=== PATIENT | female | born 1970 | race Caucasian/White ===

== ENCOUNTER 2018-06-17 12:48 | Outpatient (REF) | payer OTHER, SELFPAY ==
--- NOTE | 2018-06-17 11:00 | PAPFT_PTH ---
PATIENT: Nancy Epstein LOC: [facility] U#:[id number] AGE/SX: 47/F ROOM: RE06/17/[address]: Laan Matthews : 1970 BED: DIS: 06/17/2018 SPEC #: [id number] RECD: 06/17/18 18:17 STATUS: VIVIANE REQ #: [id number] NICHOLE: 06/17/18 11:[address]: Lana Matthews DEPT: [facility] Cytology RECD BY: Elizabeth Roberts Tissues: 1 - CX/ENDOCX FOR PAP SMEARS Procedures: PAP THIN PREP/UVM Screening HPV DNA PROBE Comments: [id number]
== END 2018-06-17 13:08 ==
LOC: NCHCN 12:48
PROVIDERS: PCP Family Medicine; Visit Provider Family Medicine
DX: Z00.00 Encounter for general adult medical examination without abnormal findings (principal); Z12.4 Encounter for screening for malignant neoplasm of cervix; Z11.51 Encounter for screening for human papillomavirus (HPV)
CPT/HCPCS: 88142; 87624

== ENCOUNTER 2018-07-13 00:44 | Outpatient (CLI) | payer OTHER, SELFPAY ==
--- NOTE | 2018-07-13 13:00 | DI.MAMMO_ITS ---
SYMPTOM/DIAGNOSIS: SCREENING, Z12.31 MAMMOGRAMS: Mammograms were interpreted according to the usual protocol including computer analysis with CAD system, tomosynthesis and C view imaging. Comparison is made with exams from 2009 and 2011. The breasts are composed of heterogeneously dense fibroglandular tissue, breast density, category C. In the lateral right breast, on the CC view, there is a question of a small area of nodularity with architectural distortion. No definite abnormality is seen on the MLO view. Spot compression views and ultrasound are requested for further evaluation. No abnormality or change is seen in the left breast. IMPRESSION: Right breast, category 0. Left breast, category 1, negative. MQSA ASSESSMENT OF FINDINGS: Incomplete: Needs additional imaging evaluation. Category 0. Patient will receive a letter notifying them of these results. Bi-RADS category C. The breasts are heterogeneously dense, which may obscure small masses.
== END 2018-07-13 01:04 ==
PROVIDERS: PCP Family Medicine; Visit Provider Family Medicine
DX: Z12.31 Encounter for screening mammogram for malignant neoplasm of breast (principal); R92.8 Other abnormal and inconclusive findings on diagnostic imaging of breast
CPT/HCPCS: 77063; 77067

== ENCOUNTER 2018-07-21 00:55 | Outpatient (CLI) | payer OTHER, SELFPAY ==
--- NOTE | 2018-07-21 14:00 | DI.MAMMO_ITS ---
SYMPTOMS/DIAGNOSIS: F/U ABNORMAL MAMMO, NODULARITY WITH ARCHITECTURAL DISTORTION MAMMOGRAM: Additional images are interpreted according to the usual protocol including tomosynthesis and 2D imaging. Craniocaudad and mediolateral compression spot films of the right breast were obtained today and reveal rather dense fibronodular tissue in the right breast. There is a small region in the medial breast tissue, which appears to be perhaps spiculated. There is a question again made of a small lesion in this patient. At ultrasound, no cyst or mass is identified. SUMMARY: No definite evidence of malignancy; however, close followup of this patient with repeat mammogram and ultrasound in three to four months is suggested for further review. Category 3, breast density category C. MQSA ASSESSMENT OF FINDINGS: Probably benign. Three to four month follow-up recommended. Category 3. Patient will receive a letter notifying them of these results. Bi-RADS category C. The breasts are heterogeneously dense, which may obscure small masses.
== END 2018-07-21 01:15 ==
PROVIDERS: PCP Family Medicine; Visit Provider Family Medicine
DX: Z12.31 Encounter for screening mammogram for malignant neoplasm of breast (principal); R92.8 Other abnormal and inconclusive findings on diagnostic imaging of breast; N60.81 Other benign mammary dysplasias of right breast
CPT/HCPCS: 76642; 77061; 77065; G0279

== ENCOUNTER 2018-10-26 00:10 | Outpatient (CLI) | payer OTHER, SELFPAY ==
--- NOTE | 2018-10-26 09:51 | DI.MAMMO_ITS ---
SYMPTOMS/DIAGNOSIS: F/U ABNL MAMMO, 3 MO F/U RIGHT MAMMOGRAM: Mammograms were interpreted according to the usual protocol including computer analysis with CAD system, tomosynthesis and C view imaging. Comparison is made with 23Oct and 59Gme12. Spot compression CC and MLO views were performed for questioned area of spiculation on the CC view on the previous exam. The right breast is composed of heterogeneously dense fibroglandular tissue, breast density Category C. No persistent abnormality is identified. The findings are consistent with overlying fibroglandular tissue. IMPRESSION: Category 3, negative mammogram. Bilateral screening should be resumed in June 2019. SA ASSESSMENT OF FINDINGS: Probably benign. Resume annual screening. Category 3. Patient will receive a letter notifying them of these results. Bi-RADS category C. The breasts are heterogeneously dense, which may obscure small masses.
== END 2018-10-26 00:30 ==
PROVIDERS: PCP Family Medicine; Visit Provider Family Medicine
DX: Z12.31 Encounter for screening mammogram for malignant neoplasm of breast (principal); R92.8 Other abnormal and inconclusive findings on diagnostic imaging of breast; N64.59 Other signs and symptoms in breast
CPT/HCPCS: 77061; 77065; G0279

== ENCOUNTER 2020-06-14 12:30 | Outpatient (REF) | payer MEDICAID, SELFPAY ==
[2020-06-14 19:16] LABS: Abs Immature Grans 0.01 10^3/uL (0.0-0.06); Absolute Basophil Count 0.02 10^3/uL (0.0-0.2); Absolute Eosinophil Count 0.07 10^3/uL (0.0-0.7); Absolute Lymphocyte Count 1.41 10^3/uL (1.2-3.4); Absolute Monocyte Count 0.25 10^3/uL (0.1-0.8); Absolute Neutrophil Count 2.97 10^3/uL (1.2-6.7); Basophils % 0.4; Eosinophils % 1.5; HCT 41.9 % (36.0-46.0); HGB 13.8 g/dL (11.2-15.7); Immature Grans % 0.2; Lymphocytes % 29.8; MCH 27.2 pg (27.0-33.0); MCHC 32.9 % (32.0-36.0); MCV 82.5 fL (80-95); MPV 10.9 fL (8.0-11.0); Monocytes % 5.3; Neutrophils % 62.8; Nucleated RBC 0 %; Platelet Count 215 10^3/uL (130-400); RBC 5.08 10^6/uL (3.93-5.22); RDW 12.5 % (11.7-14.6); RDW-SD 37.6 fL; WBC 4.73 10^3/uL (4.4-10.8)
[2020-06-14 19:50] LABS: Hemoglobin A1C 5.9 % (<5.7)
[2020-06-14 20:00] LABS: ESR 13 mm/hr (0-20)
[2020-06-14 20:14] LABS: ALT 31 U/L (14-59); AST 16 U/L (15-37); Albumin 4.4 g/dL (3.4-5.0); Alkaline Phosphatase 71 U/L (46-116); Anion Gap 9.2 mmol/L (3-11); BUN 11 mg/dL (7-18); Bilirubin, Total 0.3 mg/dL (0.2-1.0); CO2 28.8 mmol/L (21.0-32.0); CREATININE 0.66 mg/dL (0.55-1.02); Calcium 9.3 mg/dL (8.5-10.1); Calculated LDL 247 mg/dL (<100); Chloride 102 mmol/L (98-107); Cholesterol 353 mg/dL (<200); Folate 18.3 ng/mL (8.6-20.0); Glucose 94 mg/dL (74-106); HDL Cholesterol 55 mg/dL (40-60); Sodium 140 mmol/L (136-145); TSH (W/Ref FT4) 1.47 uIU/mL (0.36-3.74); Total Protein 7.6 g/dL (6.4-8.2); Triglyceride 255 mg/dL (<150)
[2020-06-18 10:38] LABS: Syphilis Serology (RPR) Negative (Negative)
[2020-06-18 10:59] LABS: Hepatitis C Ab w Rflx HCV PCR Negative (Negative)
[2020-06-18 12:08] LABS: HIV-1/2 Ag & Ab Screen Negative (Negative)
== END 2020-06-14 12:50 ==
LOC: NCHCN 12:30
PROVIDERS: PCP Family Medicine; Visit Provider Nurse Practitioner Family
DX: Z13.29 Encounter for screening for other suspected endocrine disorder (principal); Z11.4 Encounter for screening for human immunodeficiency virus [HIV]; Z13.0 Encounter for screening for diseases of the blood and blood-forming organs and certain disorders involving the immune mechanism; Z13.1 Encounter for screening for diabetes mellitus; Z11.59 Encounter for screening for other viral diseases; Z13.220 Encounter for screening for lipoid disorders
CPT/HCPCS: 80053; 80061; 85652; 86803; 87389; 82746; 83036; 84443; 85025; 86592

== ENCOUNTER 2020-07-09 19:02 | Outpatient (REF) | payer MEDICAID, SELFPAY ==
[2020-07-09 19:37] LABS: Vitamin B12 602 pg/mL (193-986)
[2020-07-11 10:21] LABS: Lyme Ab w Rflx to Lyme Confirm Negative (Negative)
[2020-07-13 03:50] LABS: Anaplasma phagocytophilum Negative (Negative); B. miyamotoi PCR Negative (Negative); Babesia divergens/MO-1 Negative (Negative); Babesia duncani Negative (Negative); Babesia microti Negative (Negative); Ehrlichia chaffeensis Negative (Negative); Ehrlichia ewingii/canis Negative (Negative); Ehrlichia muris eauclairensis Negative (Negative)
== END 2020-07-09 19:22 ==
LOC: NCHCN 19:02
PROVIDERS: PCP Family Medicine; Visit Provider Nurse Practitioner Family
DX: G62.9 Polyneuropathy, unspecified (principal)
CPT/HCPCS: 87798; 82607; 86618

== ENCOUNTER 2020-07-13 15:11 | Outpatient (REF) | payer MEDICAID, SELFPAY ==
[2020-07-16 02:14] LABS: Patient Race White; SARS-CoV-2 RNA Undetected (Undetected); SARS-CoV-2 Specimen Source Nasal
== END 2020-07-13 15:31 ==
LOC: NCHCN 15:11
PROVIDERS: PCP Family Medicine; Visit Provider Nurse Practitioner Family
DX: Z11.59 Encounter for screening for other viral diseases (principal)
CPT/HCPCS: U0003

== ENCOUNTER 2020-08-23 13:07 | Outpatient (REF) | payer MEDICAID, SELFPAY ==
[2020-08-23 18:29] LABS: ALT 39 U/L (14-59); AST 19 U/L (15-37); Albumin 4.2 g/dL (3.4-5.0); Alkaline Phosphatase 88 U/L (46-116); Bilirubin, Total 0.3 mg/dL (0.2-1.0); Calculated LDL 88 mg/dL (<100); Cholesterol 159 mg/dL (<200); HDL Cholesterol 44 mg/dL (40-60); Total Protein 7.2 g/dL (6.4-8.2); Triglyceride 139 mg/dL (<150)
[2020-08-23 18:49] LABS: Bilirubin, Direct 0.08 mg/dL (0.00-0.20)
== END 2020-08-23 13:27 ==
LOC: NCHCN 13:07
PROVIDERS: PCP Family Medicine; Visit Provider Nurse Practitioner Family
DX: E78.5 Hyperlipidemia, unspecified (principal); Z13.818 Encounter for screening for other digestive system disorders
CPT/HCPCS: 80061; 80076

== ENCOUNTER 2020-09-26 03:24 | Outpatient (CLI) | payer MEDICAID, SELFPAY ==
--- NOTE | 2020-09-26 | DI.MAMMO_ITS ---
EXAM: MG MAMMO SCREENING CLINICAL HISTORY: SCREENING,Z12.31. TECHNIQUE: Bilateral full field digital CC and MLO mammographic images were obtained with 3D tomosyn thesis and utilizing computer aided detection (CAD). COMPARISON: Prior mammograms dating back to 2010, the most recent being October 2018. FINDINGS: There are no CAD designations. In the left breast on 3D cc imaging there is a 7 x 7 millimeter slightly lobulated nodular density se en at approximately 6 o'clock position located 6.5 centimetres in from the nipple. Small nodular den sities posteriorly in the right breast are unchanged from prior studies. Asymmetric tissue in the ri ght breast is unchanged from prior study studies. There is no new architectural distortion or new sk in thickening-traction. IMPRESSION: Moderately dense fibroglandular tissue. Left breast nodule 7 x 7 millimeters, best seen on CC 3D david ging. Spot compression views with 3D technique recommended. Also recommend ultrasound. BI-RADS Category 0 - Assessment Incomplete: Need additional imaging evaluation Breast Density - Category C - Heterogeneously dense Breast density Category C or D implies that the patient has dense breast tissue. Dense breast tissue can make it harder to find cancer on a mammogram. Dense breast tissue is also associated with an incr eased risk of breast cancer. This information about the result of the mammogram report was provided to the patient to raise their awareness. Use this report when you speak with the patient about their risks for breast cancer, which includes their family history. At that time, you may recommend additional screening tests (Ultrasoun d or MRI) as these tests may add significant information. A negative radiographic report should not delay biopsy if a dominant or clinically suspicious mass is present. Up to ten percent of cancers are not identified on mammography. A negative report may reinforce clinical impression. Adenosis and dense breasts may obscure an underlying neoplasm. False positive reports average 6 to 10%. Patient will receive a letter notifying them of these results.
== END 2020-09-26 03:44 ==
PROVIDERS: PCP Family Medicine; Visit Provider Nurse Practitioner Family
DX: Z12.31 Encounter for screening mammogram for malignant neoplasm of breast (principal); N63.25 Unspecified lump in the left breast, overlapping quadrants
CPT/HCPCS: 77063; 77067

== ENCOUNTER 2020-10-03 03:08 | Outpatient (CLI) | payer MEDICAID, SELFPAY ==
--- NOTE | 2020-10-03 | DI.US_ITS ---
EXAM: US BREAST LT COMPLETE CLINICAL HISTORY: F/U MAMMO, LT BREAST NODULE. TECHNIQUE: Limited ultrasound of the right breast was performed. COMPARISON: Prior mammograms were reviewed. Today's spot compression mammographic view was also revi ewed. FINDINGS: Complete left breast ultrasound was performed including all 4 quadrants as well as the retroareolar r egion and left axilla. Patient was scanned both by the technologist and thereafter by myself. There is no evidence of solid or significant cystic lesions in all 4 quadrants nor within the retroar eolar regions. There are no focal ultrasound findings to correspond to the nodule described on the m ammogram. Therefore this probably represents a benign intramammary lymph node. There is no significant adenopathy in the ipsilateral-left axilla. IMPRESSION: Negative left breast ultrasound. This implies that the nodular density seen on the mammogram is most probably benign tissue or benign intramammary lymph node. Appropriate follow-up is repeat left breast 3D mammogram in 6 months, with earlier imaging if a self detected breast changes noted. Findings and recommendations were discussed by myself with the patient today. BI-RADS Category 3 - 6 month - Probably Benign Finding: Recommend follow-up mammography in 6 months Breast Density - Category C - Heterogeneously dense Breast density Category C or D implies that the patient has dense breast tissue. Dense breast tissue can make it harder to find cancer on a mammogram. Dense breast tissue is also associated with an incr eased risk of breast cancer. This information about the result of the mammogram report was provided to the patient to raise their awareness. Use this report when you speak with the patient about their risks for breast cancer, which includes their family history. At that time, you may recommend additional screening tests (Ultrasoun d or MRI) as these tests may add significant information. A negative radiographic report should not delay biopsy if a dominant or clinically suspicious mass is present. Up to ten percent of cancers are not identified on mammography. A negative report may reinforce clinical impression. Adenosis and dense breasts may obscure an underlying neoplasm. False positive reports average 6 to 10%. Patient will receive a letter notifying them of these results.
--- NOTE | 2020-10-03 | DI.MAMMO_ITS ---
EXAM: MG MAMMO SCREEN CALL BACK UNI CLINICAL HISTORY: F/U MAMMO, LT BREAST NODULE. TECHNIQUE: Bilateral full field digital CC and MLO mammographic images were obtained with 3D tomosyn thesis and utilizing computer aided detection (CAD). COMPARISON: Prior mammograms dating back to 2010, the most recent being recent screening mammogram o f September 26, 2020. Left breast ultrasound was also performed today following his distal mammographic images. FINDINGS: The nodular density persists on 3D spot compression mammographic views. We then proceeded to perform complete ultrasound of the left breast. This did not reveal solid or significant cystic lesions in all 4 quadrants. This implies that the no dular density is either an asymmetric lobular density or benign intramammary lymph node. IMPRESSION: Benign-appearing nodule in the central left breast. No ultrasound findings to correspond to this. P imani see separate breast ultrasound report dictated today. Appropriate follow-up, as discussed by myself with the patient today, is repeat left breast mammogram in 6 months time, with earlier imaging if a self detected breast changes noted. BI-RADS Category 3 - 6 month - Probably Benign Finding: Recommend follow-up mammography in 6 months Breast Density - Category C - Heterogeneously dense Breast density Category C or D implies that the patient has dense breast tissue. Dense breast tissue can make it harder to find cancer on a mammogram. Dense breast tissue is also associated with an incr eased risk of breast cancer. This information about the result of the mammogram report was provided to the patient to raise their awareness. Use this report when you speak with the patient about their risks for breast cancer, which includes their family history. At that time, you may recommend additional screening tests (Ultrasoun d or MRI) as these tests may add significant information. A negative radiographic report should not delay biopsy if a dominant or clinically suspicious mass is present. Up to ten percent of cancers are not identified on mammography. A negative report may reinforce clinical impression. Adenosis and dense breasts may obscure an underlying neoplasm. False positive reports average 6 to 10%. Patient will receive a letter notifying them of these results.
== END 2020-10-03 03:28 ==
PROVIDERS: PCP Family Medicine; Visit Provider Nurse Practitioner Family
DX: Z12.31 Encounter for screening mammogram for malignant neoplasm of breast (principal); R92.8 Other abnormal and inconclusive findings on diagnostic imaging of breast; N60.82 Other benign mammary dysplasias of left breast
CPT/HCPCS: 76642; 77063; 77067

== ENCOUNTER 2021-04-18 03:40 | Outpatient (CLI) | payer MEDICAID, SELFPAY ==
--- NOTE | 2021-04-18 10:53 | DI.MAMMO_ITS ---
Exam(s) MG MAMMO DIAGNOSTIC UNI EXAM: MAMMO DIAGNOSTIC UNI-LEFT CLINICAL HISTORY: 6 MONTH F/U, F/U ABNL MAMMO, R92.8. TECHNIQUE: Unilateral spot mammographic images were obtained with 3D Tomosynthesistechnique and util izing computer aided detection (CAD). COMPARISON: Prior mammograms dating back to 2017, the most recent being 09/26/2020. Ultrasound perf ormed 10/03/2020 was also reviewed FINDINGS: The previously described noncalcified nodule located 6.5 cm in from the nipple is unchanged from 2020. No additional new nodules evident. No malignant-appearing microcalcification groups. No new architectural distortion or skin thickening-traction IMPRESSION: Stable appearance of the 7 x 7 millimeter slightly lobulated benign-appearing nodule in the left cherelle st, unchanged from September 2020 (and not evident on ultrasound examination of September 2020..... Ther efore probably benign lymph node) Appropriate follow-up, as discussed by myself with the patient today, is to keep this patient yearly mammogram schedule, this implying the next bilateral mammogram would be in September 2021, with earlier imaging if a self detected breast change is noted.. The patient was informed of the findings and follow-up recommendations prior to [facility]. BI-RADS Category 2 - Benign Findings Breast Density - Category C - Heterogeneously dense Breast density Category C or D implies that the patient has dense breast tissue. Dense breast tissue can make it harder to find cancer on a mammogram. Dense breast tissue is also associated with an incr eased risk of breast cancer. This information about the result of the mammogram report was provided to the patient to raise their awareness. Use this report when you speak with the patient about their risks for breast cancer, which includes their family history. At that time, you may recommend additional screening tests (Ultrasoun d or MRI) as these tests may add significant information. A negative radiographic report should not delay biopsy if a dominant or clinically suspicious mass is present. Up to ten percent of cancers are not identified on mammography. A negative report may reinforce clinical impression. Adenosis and dense breasts may obscure an underlying neoplasm. False positive reports average 6 to 10%. Patient will receive a letter notifying them of these results.
== END 2021-04-18 04:00 ==
PROVIDERS: PCP Family Medicine; Visit Provider Nurse Practitioner Family
DX: R92.8 Other abnormal and inconclusive findings on diagnostic imaging of breast (principal); N63.20 Unspecified lump in the left breast, unspecified quadrant
CPT/HCPCS: 77061; 77065; G0279

== ENCOUNTER 2021-08-23 14:38 | Outpatient (REF) | payer MEDICAID, SELFPAY ==
--- NOTE | 2021-08-23 13:45 | PAPFT_PTH ---
PATIENT: Nancy Epstein LOC: [facility]#:[id number] AGE/SX: 51/F ROOM: RE08/23/[address]: Lana Matthews : 1970 BED: DIS: 08/23/2021 SPEC #: [id number] RECD: 08/24/21 11:50 STATUS: VIVIANE REMalgorzata #: [id number] NICHOLE: 08/23/21 13:[address]: Lana Matthews DEPT: [facility] Cytology RECD BY: Lu Pennington Tissues: 1 - CX/ENDOCX FOR PAP SMEARS Procedures: PAP THIN PREP/UVM Screening HPV DNA PROBE Comments: [id number]
[2021-08-23 19:02] LABS: ALT 41 U/L (14-59); Calculated LDL 105 mg/dL (<100); Cholesterol 184 mg/dL (<200); HDL Cholesterol 55 mg/dL (40-60); Triglyceride 123 mg/dL (<150)
== END 2021-08-23 14:39 | disposition home or self-care (01) ==
LOC: NCHCN 14:38
PROVIDERS: PCP Family Medicine; Visit Provider Family Medicine
DX: E78.5 Hyperlipidemia, unspecified (principal); R73.03 Prediabetes; Z12.4 Encounter for screening for malignant neoplasm of cervix; Z11.51 Encounter for screening for human papillomavirus (HPV); R87.610 Atypical squamous cells of undetermined significance on cytologic smear of cervix (ASC-US)
CPT/HCPCS: 80061; 88142; 83036; 84460; 87624

== ENCOUNTER → 2022-01-03 00:31 | Outpatient (CLI) | payer MEDICAID, SELFPAY | PROVIDERS: PCP Family Medicine; Visit Provider Family Medicine ==

== ENCOUNTER → 2022-07-21 02:12 | Outpatient (CLI) | payer MEDICAID, SELFPAY ==
--- NOTE | 2022-07-21 11:45 | DI.MAMMO_ITS ---
Exam(s) MAMMO SCREENING EXAM: MAMMO SCREENING CLINICAL HISTORY: SCREENING, Z12.31 TECHNIQUE: Mammograms were interpreted according to the usual protocol including computer analysis w [employer] CAD system, tomosynthesis and C-view imaging. COMPARISON: 2017 through 2020 FINDINGS: The breasts are composed of heterogeneously dense fibroglandular densities, Breast Density category C . No suspicious masses or suspicious microcalcifications are seen. No skin thickening or abnormal axillary lymph nodes are seen. There has been no significant change from prior exams. Stable circumscribed nodule left breast. IMPRESSION: BI-RADS Cat 2 - Benign Findings Yearly screening mammography is recommended. Breast Density Category C, heterogeneously Dense. The mammogram demonstrates the patient's breast tissue is dense. Dense breast tissue is very common a nd is not abnormal but dense breast tissue can make it harder to find cancer on a mammogram. Also, de nse breast tissue may increase breast cancer risk. This information about the result of the mammogram report was provided to the patient to raise their awareness. Use this report when you speak with the patient about their risks for breast cancer, which includes their family history. At that time, you may recommend additional screening tests (Ultrasound or MRI) as they might be useful based on their r isk. A negative radiographic report should not delay biopsy if a dominant or clinically suspicious mass is present. Up to ten percent of cancers are not identified on mammography. A negative report may reinforce clinical impression. Adenosis and dense breasts may obscure an underlying neoplasm. False positive reports average 6 to 10%.
== END ==
PROVIDERS: PCP Family Medicine; Visit Provider Family Medicine
DX: Z12.31 Encounter for screening mammogram for malignant neoplasm of breast (principal)
CPT/HCPCS: 77063; 77067

== ENCOUNTER 2023-06-17 16:16 | Outpatient (REF) | payer BC, SELFPAY ==
[2023-06-17 20:36] LABS: Calculated LDL 225 mg/dL (<100); Cholesterol 320 mg/dL (<200); HDL Cholesterol 79 mg/dL (40-60); Triglyceride 83 mg/dL (<150)
== END 2023-06-17 16:17 | disposition home or self-care (01) ==
LOC: NCHCN 16:16
PROVIDERS: PCP Family Medicine; Visit Provider Family Medicine
DX: E78.5 Hyperlipidemia, unspecified (principal)
CPT/HCPCS: 80061

== ENCOUNTER → 2023-07-22 03:42 | Outpatient (CLI) | payer BC, SELFPAY ==
--- NOTE | 2023-07-22 09:06 | DI.MAMMO_ITS ---
Exam(s) MAMMO SCREENING EXAM: MAMMO SCREENING CLINICAL HISTORY: SCREENING, Z12.31 TECHNIQUE: Mammograms were interpreted according to the usual protocol including computer analysis w [employer] CAD system, tomosynthesis and C-view imaging. COMPARISON: 2017 through 2021 FINDINGS: The breasts are composed of heterogeneously dense fibroglandular densities, Breast Density category C . No suspicious masses or suspicious microcalcifications are seen. No skin thickening or abnormal axillary lymph nodes are seen. There has been no significant change from prior exams. IMPRESSION: BI-RADS Category 1, Negative mammogram. Yearly screening mammography is recommended. Breast Density Category C, heterogeneously Dense. The mammogram demonstrates the patient's breast tissue is dense. Dense breast tissue is very common a nd is not abnormal but dense breast tissue can make it harder to find cancer on a mammogram. Also, de nse breast tissue may increase breast cancer risk. This information about the result of the mammogram report was provided to the patient to raise their awareness. Use this report when you speak with the patient about their risks for breast cancer, which includes their family history. At that time, you may recommend additional screening tests (Ultrasound or MRI) as they might be useful based on their r isk. A negative radiographic report should not delay biopsy if a dominant or clinically suspicious mass is present. Up to ten percent of cancers are not identified on mammography. A negative report may reinforce clinical impression. Adenosis and dense breasts may obscure an underlying neoplasm. False positive reports average 6 to 10%.
== END ==
PROVIDERS: PCP Family Medicine; Visit Provider Family Medicine
DX: Z12.31 Encounter for screening mammogram for malignant neoplasm of breast (principal); R92.333 Mammographic heterogeneous density, bilateral breasts
CPT/HCPCS: 77063; 77067

== ENCOUNTER 2024-06-16 15:52 | Outpatient (REF) | payer BC, SELFPAY ==
[2024-06-16 15:50] LABS: Abs Immature Grans 0.01 10^3/uL (0.0-0.06); Absolute Basophil Count 0.02 10^3/uL (0.0-0.2); Absolute Eosinophil Count 0.04 10^3/uL (0.0-0.7); Absolute Lymphocyte Count 1.18 10^3/uL (1.2-3.4); Absolute Monocyte Count 0.27 10^3/uL (0.1-0.8); Absolute Neutrophil Count 3.85 10^3/uL (1.2-6.7); Basophils % 0.4 %; Eosinophils % 0.7 %; HCT 43.2 % (36.0-46.0); HGB 13.9 g/dL (11.2-15.7); Immature Grans % 0.2 %; MCH 27.7 pg (27.0-33.0); MCHC 32.2 % (32.0-36.0); MCV 86 fL (80-95); MPV 9.9 fL (8.0-11.0); Neutrophils % 71.7 %; Platelet Count 238 10^3/uL (130-400); RBC 5.01 10^6/uL (3.93-5.22); RDW 12.3 % (11.7-14.6); WBC 5.37 10^3/uL (4.4-10.8)
[2024-06-16 15:53] LABS: ESR 20 mm/hr (0-30)
[2024-06-16 16:07] LABS: ALT 21 U/L (14-59); AST 14 U/L (15-37); Albumin 3.8 g/dL (3.4-5.0); Alkaline Phosphatase 72 U/L (46-116); Anion Gap 5.8 mmol/L (3-11); BUN 12 mg/dL (7-18); Bilirubin, Total 0.45 mg/dL (0.2-1.0); C-Reactive Protein 1.58 mg/dL (<or=0.5); CO2 30.2 mmol/L (21.0-32.0); CREATININE 0.6 mg/dL (0.55-1.02); Calcium 9.6 mg/dL (8.5-10.1); Chloride 100 mmol/L (98-107); Glucose 99 mg/dL (74-106); Potassium 4.2 mmol/L (3.5-5.1); Sodium 136 mmol/L (136-145); Total Protein 7.3 g/dL (6.4-8.2)
== END 2024-06-16 15:53 | disposition home or self-care (01) ==
LOC: NCHCN 15:52
PROVIDERS: PCP Family Medicine; Visit Provider Student in an Organized Health Care Education/Training Program
DX: M54.6 Pain in thoracic spine (principal)
CPT/HCPCS: 80053; 85652; 85025; 86140

== ENCOUNTER 2024-08-17 16:16 | Outpatient (REF) | payer BC, SELFPAY ==
--- NOTE | 2024-08-17 14:30 | PAPFT_PTH ---
PATIENT: Nancy Epstein LOC: [facility] #:[id number] AGE/SX: 54/F ROOM: RE08/17/[address]: Lana Matthews : 1970 BED: DIS: 08/17/2024 SPEC #: [id number] RECD: 08/19/24 11:30 STATUS: VIVIANE REQ #: [id number] NICHOLE: 08/17/24 14:[address]: Lana Matthews DEPT: [facility] Cytology RECD BY: Elizabeth Roberts Tissues: 1 - CX/ENDOCX FOR PAP SMEARS Procedures: PAP THIN PREP/UVM Screening HPV DNA PROBE Comments: [id number] (HPV 16 & 18/45)
--- OUTSIDE RECORDS SUMMARY | 2024-08-17 16:18 | XMS_ITS | Encounter Summary ---
Author Organization [facility] Address [address] [place] [address] Care Team Providers Care Floorworker Name Role Phone Unknown, Provider Primary Care Provider Unava ilable Encounter Details Date Type Department Care Team (Latest Contact Info) Description 06/28/2018 10:59 EDT - 06/28/2018 23:59 EDT Hospital Encounter [address] [address] Unknown, ProviderMD Discharge Disposition: Auto Discharge Social History Tobacco Use Types Packs/Day Years Used Date Smoking Tobacco: Never Assessed Comments Unknown Sex and Gender Information Value Date Recorded Sex Assigned at Not on file Legal Sex Female 18:31 EST Gender Identity Not on file Sexual Orientation Not on file documented as of this encounter Discharge Disposition Disposition Code Departure Means Destination Auto Discharge Home documented in this encounter Plan of Treatment Not on file documented as of this encounter Visit Diagnoses Not on filedocumented in this encounter Care Teams Floorworker Relationship Specialty Start Date End Date Unknown, ProviderMD PCP - General 08/14/15 06/29/18 documented as of this encounter
--- OUTSIDE RECORDS SUMMARY | 2024-08-17 16:18 | XMS_ITS | Encounter Summary ---
Author Organization [facility] Address [address] [place] [address] Care Team Providers Care Assistant Commissioner Name Role Phone Unknown, Provider Primary Care Provider Unava ilable Encounter Details Date Type Department Care Team (Late st Contact Info) Description 06/17/2018 Results Only [facility] [phone] Lana Hoffman MD [address] [phone] Social History Tobacco Use Types Packs/Day Years Used Date Smoking Tobacco: Never Assessed Comments Unknown Sex and Gender Information Value Date Recorded Sex Assigned at Not on file Legal Sex Female 18:31 EST Gender Identity Not on file Sexual Orientation Not on file documented as of this encounter Plan of Treatment Not on file documented as of this encounter Procedures Procedure Name Priority Date/Time Associated Diagnosis Comments PAP TEST- RESULT ONLY Routine 06/17/2018 0:00 EDT documented in this encounter Results * PAP TEST- RESULT ONLY (06/17/2018 0:00 EDT) Pathology Report: CYTOPATHOLOGY REPORT Reports generated via electronic interface contain original data; however they are lacking the format of the original report. Caution should be taken when reading/interpret ing unformatted reports. Name: ? OSMIN GALLEGOS ? Accession #: ? [id number] ? : ? 1970 (Age: 47) ??F ?Collect Date: ? 06/17/2018 ? Location: ? [facility] ? Receive Date: ? 06/18/2018 ? Provider: LANA HOFFMAN MD Copy to: ? Final Report SPECIMEN ADEQUACY ? Satisfactory for Evaluation - transformation zone component present GENERAL CATEGORIZATION ? Epithelial Cell Abnormality INTERPRETATION ? Squamous Cell Abnormality - Atypical squamous cells, undetermined significance (ASC-US). EDUCATIONAL NOTES/RECOMMENDAT IONS ? [facility] recommends following ASCCP's 2012 Updated Consensus Guidelines for the Management of Abnormal Cervical Cancer Screening Tests and Cancer Precursors (JLGTD, 2013; 17(5):S1-S27). ??Consensus guidelines are available online at www.asccp.org. Last Menstrual Period: 2018 Other: Additional clinical information: Z00.00 Z12.4 Z11.51 Specimen/Source: ??Pap Test, Cervix, ThinPrep Imaging System with manual evaluation Document reviewed and electronically signed by: ? ALMA JOHNSON MD ? Report ??Date: 06/28/2018 11:17 HPV with Pap Test ? Date Ordered: ? 06/28/2018 ? Status: ?? Signed Out ?Date Complete: ? 06/29/2018 ? By: ??System Interface ? Date Reported: ? 06/29/2018 ? Interpretation RESULT: Negative for HPV. No E6 or E7 mRNA is detected from HPV types 16,18,31,33,35, 39,45,51,52,56,58 ,59,66, and 68 by grounds manager mediated amplification. Comments Document reviewed and electronically signed by: ? System Interface ? Report date: 06/29/2018 By the signature above, the attending physician certifies that he/she has personally conducted a gross and/or microscopic examination of the described specimens and rendered or confirmed the above diagnosis. End of Report [facility] 06/17/2018 06/18/2018 us Lana Hoffman MD PATHOLOGY ORDERABLES Final Resul t Performing Organization Address City/State/[facility] Co de Phone Number [facility] [address] [place] [address] documented in this encounter Visit Diagnoses Not on filedocumented in this encounter Care Teams Assistant Commissioner Relationship Specialty Start Date End Date Unknown, Provider, PCP - General 08/14/15 06/29/18 documented as of this encounter
--- OUTSIDE RECORDS SUMMARY | 2024-08-17 16:18 | XMS_ITS | Encounter Summary ---
Author Organization [facility] [place] [address] Care Team Providers Care Beaming Inspector Name Role Phone Mirian Solis MD Primary Care Provider [phone] Encounter Details Date Type Department Care Team (Late st Contact Info) Description 11/03/[address] [place] [phone] Manisha Zepeda Social History Tobacco Use Types Packs/Day Years Used Date Smoking Tobacco: Never Assessed Sex and Gender Information Value Date Recorded Sex Assigned at Not on file Gender Identity Not on file Sexual Orientation Not on file documented as of this encounter Plan of Treatment Not on file documented as of this encounter Visit Diagnoses Not on filedocumented in this encounter Care Teams Beaming Inspector Relationship Specialty Start Date End Date Mirian Solis MD [address] [place], [place] [id number] PCP - General 08/13/10 documented as of this encounter
--- OUTSIDE RECORDS SUMMARY | 2024-08-17 16:18 | XMS_ITS | Encounter Summary ---
Author Organization [facility] Address [address] [place] [address] Care Team Providers Care Rat Breeder Name Role Phone Unavailable Primary Care Provider Unavailabl e Encounter Details Date Type Department Care Team (Late st Contact Info) Description 05/07/2006 Results Only [facility] - Maple conversion [address] [place] [address] sAhok Bowens MD [address] [place] [address] [address] [place] [address] Social History Tobacco Use Types Packs/Day Years [...] Procedure Name Priority Date/Time Associated Diagnosis Comments CYTOPATHOLOGY Routine 05/07/2006 0:00 EDT documented in this encounter Results * CYTOPATHOLOGY (05/07/2006 0:00 EDT) Pathology Report: CYTOPATHOLOGY REPORT Reports generated via electronic interface contain original data; however they are lacking the format of the original report. Caution should be taken when reading/interpreti ng unformatted reports. Name: ? OSMIN GALLEGOS ? Accession #: ? [id number] : ? 1970 (Age: 35) ??F ?Collect Date: ? 05/07/2006 Location: ? [facility] ? Receive Date: ? 05/11/2006 Provider: ?ASHOK BOWENS MD Copy to: ? Specimen/Source: ?ThinPrep Pap Test, Cervix/Endocervix, processed on [employer] ThinPrep Imaging System, with manual evaluation Last Menstrual Period: ? 05/26/05 Menstrual/Pregnanc y Status: ? Post Other: ? HPVA - HPV testing requested if ASC-US on the current ThinPrep Pap test. Additional clinical information: Previous pap WNL ? SPECIMEN ADEQUACY ? Satisfactory for Evaluation - transformation zone component present GENERAL CATEGORIZATION ? Negative for Intraepithelial Lesion or Malignancy ? Document reviewed and electronically signed by: ? KIM Bhandari(ASCP) ? Report Date: ??05/14/2006 11:10 End of Report KATELYNN SONG 05/07/2006 05/11/2006 us Ashok Bowens MD PATHOLOGY ORDERABLES Final Resul t Performing Organization Address City/State/[facility] Co de Phone Number KATELYNN SONG [address] [place] [address] documented in this encounter Visit Diagnoses Not on filedocumented in this encounter
--- OUTSIDE RECORDS SUMMARY | 2024-08-17 16:18 | XMS_ITS | Encounter Summary ---
Author Organization [facility] Address [address] [place] [address] Care Team Providers Care Field Account Manager Name Role Phone Unavailable Primary Care Provider Unavailabl e Encounter Details Date Type Department Care Team (Late st Contact Info) Description 08/08/2005 Results Only [facility] - Maple conversion [address] [place] [address] Ruben Tobin [address] [place] [address] Social History Tobacco Use Types Packs/Day Years [...] Priority Date/Time Associated Diagnosis Comments CYTOPATHOLOGY Routine 08/08/2005 0:00 EST documented in this encounter Results * CYTOPATHOLOGY (08/08/2005 0:00 EST) Pathology Report: CYTOPATHOLOGY REPORT Reports generated via electronic interface contain original data; however they are lacking the format of the original report. Caution should be taken when reading/interpreti ng unformatted reports. Name: ? OSMIN GALLEGOS ? Accession #: ? [id number] : ? 1970 (Age: 35) ??F ?Collect Date: ? 08/08/2005 Location: ? [facility] ? Receive Date: ? 08/11/2005 Provider: ?RUBEN LUKEM Copy to: ? Specimen/Source: ?ThinPrep Pap Test, Cervix/Endocervix, processed on [employer] ThinPrep Imaging System, with manual evaluation Last Menstrual Period: ? 05/26/05 Menstrual/Pregnanc y Status: ? Other: ? HPVA - HPV testing requested if ASC-US on the current ThinPrep Pap test. ? SPECIMEN ADEQUACY ? Satisfactory for Evaluation - transformation zone component present GENERAL CATEGORIZATION ? Negative for Intraepithelial Lesion or Malignancy ? Document reviewed and electronically signed by: ? JESUS Peck(ASCP) ? Report Date: ??08/13/2005 14:23 End of Report KATELYNN SONG 08/08/2005 08/11/2005 us Ruben Tobin CNJaqui PATHOLOGY ORDERABLES Final Resul t KATELYNN SONG [address] [place] [address] documented in this encounter Visit Diagnoses Not on filedocumented in this encounter
--- OUTSIDE RECORDS SUMMARY | 2024-08-17 16:18 | XMS_ITS | Encounter Summary ---
Author Organization [facility] Address [address] [place] [address] Care Team Providers Care Beef Grinder Name Role Phone Lana Matthews MD Primary Care Provider [phone] Encounter Details Date Type Department Care Team (Late st Contact Info) Description 06/14/2020 Lab Requisition [facility] Pathology & Laboratory Medicine - [address] [address] Outr Resulting Lab, Provider Social History Tobacco Use Types Packs/Day Years Used Date Smoking Tobacco: Never Assessed Interpersonal Safety Answer Date Record ed Physically Hurt Never 04/22/2020 Verbally Threaten Not on file 04/22/2020 Comments Unknown Sex and Gender Information Value Date Recorded Sex Assigned at Not on file Legal Sex Female 18:31 EST Gender Identity Not on file Sexual Orientation Not on file documented as of this encounter Plan of Treatment Not on file documented as of this encounter Procedures Procedure Name Priority Date/Time Associated Diagnosis Comments SYPHILIS SEROLOGY Routine 06/14/2020 12: 20 EDT documented in this encounter Results * SYPHILIS SEROLOGY (06/14/2020 12:20 EDT) Syphilis Serology Negative Negative 06/18/2020 10:35 EDT [facility] Blood VENOUS BLOOD / Unknown 06/14/2020 12:20 EDT 06/15/2020 16:29 EDT us Provider Outr Resulting Lab IMMUNOLOGY AND SEROL OGY ORDERABLES Final Result [facility] [address] [place] [address] documented in this encounter Visit Diagnoses Not on filedocumented in this encounter Care Teams Beef Grinder Relationship Specialty Start Date End Date Lana Matthews MD [address] [place] [phone] PCP - General 06/30/18 documented as of this encounter
--- OUTSIDE RECORDS SUMMARY | 2024-08-17 16:18 | XMS_ITS | Referral Summary ---
Author Organization [facility] Address [address] [place] [address] Care Team Providers Care Telephone Sterilizer Name Role Phone Lana Matthews MD Primary Care Provider [phone] Social History Tobacco Use Types Packs/Day Years Used Date Smoking Tobacco: Never Assessed Interpersonal Safety Answer Date Record ed Physically Hurt Never 04/22/2020 Verbally Threaten Not on file 04/22/2020 Comments Unknown Sex and Gender Information Value Date Recorded Sex Assigned at Not on file Legal Sex Female 18:31 EST Gender Identity Not on file Sexual Orientation Not on file Plan of Treatment Not on file Procedures Procedure Name Priority Date/Time Associated Diagnosis Comments HEPATITIS C AB W REFLEX TO HCV RNA BY PCR Routine 06/14/2020 12:20 EDT from Last 3 Months or Most Recently Relevant to Health Maintenance Results * HEPATITIS C AB W REFLEX TO HCV RNA BY PCR (06/14/2020 12:20 EDT) Hep C Antibody Negative Negative 06/18/2020 10:53 EDT [facility] Blood VENOUS BLOOD / Unknown 06/14/2020 12:20 EDT 06/15/2020 16:32 EDT us Provider Outr Resulting Lab CHEMISTRY & BLOOD GA S ORDERABLES Final Result [facility] [address] [place] [address] from Last 3 Months or Most Recently Relevant to Health Maintenance Insurance MEDICAID [place] Care Teams Telephone Sterilizer Relationship Specialty Start Date End Date Lana Matthews MD [address] [place] [phone] PCP - General 06/30/18
--- OUTSIDE RECORDS SUMMARY | 2024-08-17 16:18 | XMS_ITS | Encounter Summary ---
Author Organization [facility] Address [address] [place] [address] Care Team Providers Care Die Holder Name Role Phone Lana Matthews MD Primary Care Provider [phone] Encounter Details Date Type Department Care Team (Late st Contact Info) Description 06/14/2020 Lab Requisition [facility] Pathology & Laboratory Medicine - [facility] [address] [place], [place] [id number] Outr Resulting Lab, Provider Social History Tobacco [...] Procedure Name Priority Date/Time Associated Diagnosis Comments HIV 1/2 ANTIGEN AND ANTIBODY, 4TH GENERATION Routine 06/14/2020 12:20 EDT documented in this encounter Results * HIV 1/2 ANTIGEN AND ANTIBODY, 4TH GENERATION (06/14/2020 12:20 EDT) HIV 1 and 2 Antibody/p24 Antigen, 4th Generation Negative Negative 06/18/2020 12:02 EDT [facility] Comment: If acute HIV-1 infection is suspected in a high risk ??patient, submit plasma specimen for HIV-1 RNA quantitation test. Fourth Generation assay performed on the Siemens [employer]. Blood VENOUS BLOOD / Unknown 06/14/2020 12:20 EDT 06/15/2020 16:28 EDT us Provider Outr Resulting Lab IMMUNOLOGY AND SEROL OGY ORDERABLES Final Result [facility] [address] [place] [address] documented in this encounter Visit Diagnoses Not on filedocumented in this encounter Care Teams Die Holder Relationship Specialty Start Date End Date Lana Matthews MD [address] [place] [phone] PCP - General 06/30/18 documented as of this encounter
--- OUTSIDE RECORDS SUMMARY | 2024-08-17 16:18 | XMS_ITS | Encounter Summary ---
Author Organization [facility] Address [address] [place] [address] Care Team Providers Care Assistant Athletic Trainer Name Role Phone Unavailable Primary Care Provider Unavailabl e Encounter Details Date Type Department Care Team (Late st Contact Info) Description 04/30/2004 Results Only [facility] - Maple conversion [address] [place] [address] Sylvester Parra MD [address] [place] [address] Social History Tobacco Use Types [...] Priority Date/Time Associated Diagnosis Comments CYTOPATHOLOGY Routine 04/30/2004 0:00 EDT documented in this encounter Results * CYTOPATHOLOGY (04/30/2004 0:00 EDT) Pathology Report: CYTOPATHOLOGY REPORT Reports generated via electronic interface contain original data; however they are lacking the format of the original report. Caution should be taken when reading/interpreti ng unformatted reports. Name: ? OSMIN GALLEGOS ? Accession #: ? [id number] : ? 1970 (Age: 33) ??F ?Collect Date: ? 04/30/2004 Location: ? [facility] ? Receive Date: ? 05/02/2004 Provider: ?SYLVESTER PARRA MD Copy to: ? Specimen/Source: ?ThinPrep Pap Test, Cervix/Endocervix Last Menstrual Period: ? 04/13/2004 ? SPECIMEN ADEQUACY ? Satisfactory for Evaluation - transformation zone component present GENERAL CATEGORIZATION ? Negative for Intraepithelial Lesion or Malignancy ? Document reviewed and electronically signed by: ? KIM Bhandari(ASCP) ? Report Date: ??05/06/2004 14:00 End of Report KATELYNN SONG 04/30/2004 05/02/2004 us Sylvester Parra MD PATHOLOGY ORDERABLES Final Resul t KATELYNN SONG [address] [place] [address] documented in this encounter Visit Diagnoses Not on filedocumented in this encounter
--- OUTSIDE RECORDS SUMMARY | 2024-08-17 16:18 | XMS_ITS | Clinical Summary ---
Author Organization [facility] Address [address] [place] [address] Care Team Providers Care Granite Block Paver Name Role Phone Lana Matthews MD Primary Care Provider [phone] Social History Tobacco Use Types Packs/Day Years Used Date Smoking Tobacco: Never Assessed Interpersonal Safety Answer Date Record ed Physically Hurt Never 04/22/2020 Verbally Threaten Not on file 04/22/2020 Comments Unknown Sex and Gender Information Value Date Recorded Sex Assigned at Not on file Legal Sex Female 18:31 EST Gender Identity Not on file Sexual Orientation Not on file Plan of Treatment Health Maintenance Due Date Last Done Comments Hepatitis B Vaccine (1 of 3 - 19+ 3-dose series) 06/26 COVID-19 Vaccine ( season) 2024 Hepatitis C Screen Completed 06/14/2020 Procedures Procedure Name Priority Date/Time Associated Diagnosis Comments HEPATITIS C AB W REFLEX TO HCV RNA BY PCR Routine 06/14/2020 12:20 EDT from Last 3 Months or Most Recently Relevant to Health Maintenance Results * HEPATITIS C AB W REFLEX TO HCV RNA BY PCR (06/14/2020 12:20 EDT) Hep C Antibody Negative Negative 06/18/2020 10:53 EDT [facility] Blood VENOUS BLOOD / Unknown 06/14/2020 12:20 EDT 06/15/2020 16:32 EDT us Provider Outr Resulting Lab CHEMISTRY & BLOOD GA S ORDERABLES Final Result [facility] [address] [place] [phone] from Last 3 Months or Most Recently Relevant to Health Maintenance Insurance MEDICAID [place] Care Teams Granite Block Paver Relationship Specialty Start Date End Date Lana Matthews MD [address] [place] [phone] PCP - General 06/30/18
--- OUTSIDE RECORDS SUMMARY | 2024-08-17 16:18 | XMS_ITS | Encounter Summary ---
Author Organization [facility] Address [address] [place] [address] Care Team Providers Care Local Sales Associate Name Role Phone Lana Matthews MD Primary Care Provider [phone] Encounter Details Date Type Department Care Team (Late st Contact Info) Description 07/10/2020 Lab Requisition [facility] Pathology & Laboratory Medicine - [facility] [address] [place], [place] [phone] Outr Resulting Lab, Provider Social History Tobacco [...] Procedure Name Priority Date/Time Associated Diagnosis Comments LYME AB Routine 07/09/2020 14:08 EDT documented in this encounter Results * LYME AB (07/09/2020 14:08 EDT) Lyme Ab Negative Negative 07/11/2020 10:12 EDT [facility] Comment:New 3rd generation a ssay in use 02/29/2020 Blood VENOUS BLOOD / Unknown 07/09/2020 14:08 EDT 07/10/2020 16:58 EDT us Provider Outr Resulting Lab IMMUNOLOGY AND SEROL OGY ORDERABLES Final Result Performing Organization Address City/State/[facility] Co de Phone Number [facility] [address] [place] [address] documented in this encounter Visit Diagnoses Not on filedocumented in this encounter Care Teams Local Sales Associate Relationship Specialty Start Date End Date Lana Matthews MD [address] [place] [phone] PCP - General 06/30/18 documented as of this encounter
--- OUTSIDE RECORDS SUMMARY | 2024-08-17 16:18 | XMS_ITS | Encounter Summary ---
Author Organization [facility] Address [address] [place] [address] Care Team Providers Care Supervisor Rod Placing Name Role Phone Unavailable Primary Care Provider Unavailabl e Encounter Details Date Type Department Care Team (Late st Contact Info) Description 08/23/2012 Results Only [facility] [place] [address] [place] [address] Lana Hoffman MD [address] [facility] [address] [place] [phone] Social History Tobacco Use Types Packs/Day [...] Diagnosis Comments PAP TEST- RESULT ONLY Routine 08/23/2012 0:00 EST documented in this encounter Results * PAP TEST- RESULT ONLY (08/23/2012 0:00 EST) Pathology Report: CYTOPATHOLOGY REPORT Reports generated via electronic interface contain original data; however they are lacking the format of the original report. Caution should be taken when reading/interpreti ng unformatted reports. Name: ? OSMIN GALLEGOS ? Accession #: ? [id number] ? : ? 1970 (Age: 42) ??F ?Collect Date: ? 08/23/2012 ? Location: ? [facility] ? Receive Date: ? 08/25/2012 ? Provider: LANA HOFFMAN MD Copy to: ? Final Report SPECIMEN ADEQUACY ? Satisfactory for Evaluation - transformation zone component present GENERAL CATEGORIZATION ? Negative for Intraepithelial Lesion or Malignancy INTERPRETATION ? Reactive cellular changes associated with inflammation present (includes repair). Last Menstrual Period: 07/10/12 Specimen/Source: ??Pap Test, Cervix, ThinPrep Imaging System with manual evaluation Document reviewed and electronically signed by: ? SHEA READ MD ? Report ??Date: 09/06/2012 19:00 HPV with Pap Test ? Date Ordered: ? 09/06/2012 ? Status: ?? Signed Out ?Date Complete: ? 09/08/2012 ? By: ??System Interface ? Date Reported: ? 09/08/2012 ? Interpretation RESULT: Negative for HPV. No E6 or E7 mRNA is detected from HPV types 16,18,31,33,35, 39,45,51,52,56,58, 59,66, and 68 by fence installer foreman mediated amplification. Comments Document reviewed and electronically signed by: ? System Interface ? Report date: 09/08/2012 By the signature above, the attending physician certifies that he/she has personally conducted a gross and/or microscopic examination of the described specimens and rendered or confirmed the above diagnosis. End of Report [facility] 08/23/2012 08/25/2012 us Lana Hoffman MD PATHOLOGY ORDERABLES Final Resul t KATELYNN [facility] [address] [place] [address] documented in this encounter Visit Diagnoses Not on filedocumented in this encounter
--- OUTSIDE RECORDS SUMMARY | 2024-08-17 16:18 | XMS_ITS | Encounter Summary ---
[place] [address] Care Team Providers Care Hay Buckler Name Role Phone Mirian Solis MD Primary Care Provider [phone] Encounter Details Date Type Department Care Team (Latest Contact Info) Description 11/18/2023 Travel Social History Tobacco Use Types Packs/Day Years Used Date Smoking Tobacco: Never Assessed Sex and Gender Information Value Date Recorded Sex Assigned at Not on file Gender Identity Not on file Sexual Orientation Not on file documented as of this encounter Plan of Treatment Not on file documented as of this encounter Visit Diagnoses Not on filedocumented in this encounter Care Teams Hay Buckler Relationship Specialty Start Date End Date Mirian Solis MD [address] [place], [place] [phone] PCP - General 08/13/10 documented as of this encounter
--- OUTSIDE RECORDS SUMMARY | 2024-08-17 16:18 | XMS_ITS | Clinical Summary ---
Author Organization [facility] [place] [address] Care Team Providers Care Dynamite Packing Machine Feeder Name Role Phone Mirian Solis MD Primary Care Provider [phone] Immunizations Name Administration Dates Next Due Influenza Vaccine, Whole 07/15/2005 Td Adult (not absorbed) 07/15/2005 Social History Tobacco Use Types Packs/Day Years Used Date Smoking Tobacco: Never Assessed Sex and Gender Information Value Date Recorded Sex Assigned at Not on file Gender Identity Not on file Sexual Orientation Not on file Plan of Treatment Health Maintenance Due Date Last Done Comments CT Colonography 1970 Colonoscopy 1970 Colorectal Cancer Screening 1970 FIT DNA 1970 FIT 1970 Sigmoidoscopy (10 year) with FIT yearly 1970 Sigmoidoscopy 1970 HIV screen 1987 Hepatitis C Screening 1987 Hepatitis B vaccine (0-59 yrs) (1) 1988 HPV test 1999 PAP Smear 1999 Tetanus/Diphtheria/Pertussis Vaccines (1 - Tdap) 07/1607/15/2005 Breast Cancer Share Decision Needed 2009 Breast Cancer screening 2009 Zoster vaccine (1 of 2) 2019 Covid-19 Vaccine (1 - 2023- season) 2024 Influenza (Flu) vaccine (1 o f 1 - Influenza standard series) 05/22/2024 07/15/2005 Advance Directive 2024 Care Teams Dynamite Packing Machine Feeder Relationship Specialty Start Date End Date Mirian Solis MD [address] [place], [place] [phone] PCP - General 08/13/10
--- OUTSIDE RECORDS SUMMARY | 2024-08-17 16:18 | XMS_ITS | Encounter Summary ---
Author Organization [facility] Address [address] [place] [address] Care Team Providers Care Aeroplane Pilot Name Role Phone Lana Matthews MD Primary Care Provider [phone] Encounter Details Date Type Department Care Team (Late st Contact Info) Description 06/14/[address] [facility] Pathology & Laboratory Medicine - [facility] [address] [place], [place] [phone] Outr Resulting Lab, Provider Social History Tobacco [...] RNA BY PCR Routine 06/14/2020 12:20 EDT documented in this encounter Results * HEPATITIS C AB W REFLEX TO HCV RNA BY PCR (06/14/2020 12:20 EDT) Hep C Antibody Negative Negative 06/18/2020 10:53 EDT [facility] Blood VENOUS BLOOD / Unknown 06/14/2020 12:20 EDT 06/15/2020 16:32 EDT us Provider Outr Resulting Lab CHEMISTRY & BLOOD GA S ORDERABLES Final Result [facility] [address] [place] [address] documented in this encounter Visit Diagnoses Not on filedocumented in this encounter Care Teams Aeroplane Pilot Relationship Specialty Start Date End Date Lana Matthews MD [address] [place] [phone] PCP - General 06/30/18 documented as of this encounter
--- OUTSIDE RECORDS SUMMARY | 2024-08-17 16:18 | XMS_ITS | Encounter Summary ---
Author Organization [facility] Address [address] [place] [address] Care Team Providers Care Court Recording Monitor Name Role Phone Unavailable Primary Care Provider Unavailabl e Encounter Details Date Type Department Care Team (Late st Contact Info) Description 01/10/2010 Results Only [facility] Services - [facility] [address] [place] [address] Lana Hoffman MD [address] [place] [phone] Social History Tobacco Use Types Packs/Day [...] Priority Date/Time Associated Diagnosis Comments CYTOPATHOLOGY Routine 01/10/2010 0:00 EDT documented in this encounter Results * CYTOPATHOLOGY (01/10/2010 0:00 EDT) Pathology Report: CYTOPATHOLOGY REPORT ? Reports generated via electronic interface contain original data; ? however they are lacking the format of the original report. ? Caution should be taken when reading/interpreti ng unformatted reports. ? Name: ? OSMIN GALLEGOS ? Accession #: ? [id number] ? : ? 1970 (Age: 39) ??F ?Collect Date: ? 01/10/2010 ? Location: ? [facility] ? Receive Date: ? 01/11/2010 ? Provider: ?LANA HOFFMAN MD ? Copy to: ? Specimen/Source: ?Pap Test, Cervix/Endocervix, ThinPrep Imaging System ? with manual evaluation ? Last Menstrual Period: ? 04/01/10 ? Other: ? HPVA - HPV testing requested if ASC-US on the current ThinPrep Pap test. ? SPECIMEN ADEQUACY ? Satisfactory for Evaluation ? - transformation zone component present ? GENERAL CATEGORIZATION ? Negative for Intraepithelial Lesion or Malignancy ? Document reviewed and electronically signed by: ? Be Moneler, CT(ASCP) ? Report Date: ??01/17/2010 13:13 ? End of Report ? KATELYNN SONG 01/10/2010 01/11/2010 us Lana Hoffman MD PATHOLOGY ORDERABLES Final Resul t KATELYNN SONG [address] [place] [address] documented in this encounter Visit Diagnoses Not on filedocumented in this encounter
--- OUTSIDE RECORDS SUMMARY | 2024-08-17 16:18 | XMS_ITS | Encounter Summary ---
Author Organization [place] [address] Care Team Providers Care Sales Service Supervisor Name Role Phone Mirian Solis MD Primary Care Provider [phone] Reason for Referral * Diagnostic Test (Routine) - Closed Specialty Diagnoses / Procedures Referred By Contac t Referred To Contact Radiology Diagnoses Hyperlipidemia, unspecified hyperlipidemia type Procedures CT Heart For Coronary Calcium wo Contrast (Prepaid) Lana Matthews MD [address] [place] [address] [facility] [place] [address] Referral ID Status Reason Start Date Expiration Date V isits Requested Visits Authorized [id number] Closed Specialty Service Requested 11/03/2023 05/03/2025 1 1 Reason for Visit * Diagnostic Test (Routine) - Closed Specialty Diagnoses / Procedures Referred By Contac t Referred To Contact Radiology Diagnoses Hyperlipidemia, unspecified hyperlipidemia type Procedures CT Heart For Coronary Calcium wo Contrast (Prepaid) Lana Matthews MD [address] [place] [address] [facility] [place] [address] Referral ID Status Reason Start Date Expiration Date V isits Requested Visits Authorized [id number] Closed Specialty Service Requested 11/03/2023 05/03/2025 1 1 Encounter Details Date Type Department Care Team (Latest Contact Info) Description 11/18/2023 3:39 PM EST - 11/18/2023 11:59 PM EST Hospital [place] [address] Lana Matthews MD [address] [place] [address] Hyperlipidemia, unspecified hyperlipidemia type Discharge Disposition: Home Social History Tobacco Use Types Packs/Day Years Used Date Smoking Tobacco: Never Assessed Sex and Gender Information Value Date Recorded Sex Assigned at Not on file Gender Identity Not on file Sexual Orientation Not on file documented as of this encounter Plan of Treatment Not on file documented as of this encounter Procedures Procedure Name Priority Date/Time Associated Diagnosis Comments CT HEART FOR CORONARY CALCIUM WO CONTRAST (PREPAID) Routine 11/18/2023 4:08 PM EST Hyperlipidemia, unspecified hyperlipidemia type documented in this encounter Results * CT Heart For Coronary Calcium wo Contrast (Prepaid) (11/18/2023 4:08 PM EST) Anatomical Region Laterality Modality Chest, Cardiac Computed Tomogra phy Impressions 11/18/2023 5:08 PM EST 1. ??Coronary calcium score of 0, consistent with no detectable calcified atherosclerotic plaque burden. Thank you for letting us participate in the care of this patient. ??If you are a health care provider and have any questions regarding this report, please contact the number below. ??For patients who have questions please contact the health field care coordinator that requested your imaging first. ? Electronically signed by: Gayatri Tanner MD, [facility] ([phone]), at 11/18/2023 5:08 PM Narrative 11/18/2023 5:08 PM EST EXAMINATION: CT HEART FOR CORONARY CALCIUM WO CONTRAST (PREPAID) CLINICAL HISTORY: hyperlipidemia COMPARISON: None. TECHNIQUE: 3.0 mm thick axial contiguous sections through the heart were obtained via ECG-gated axial mode acquisition without intravenous contrast. Craniocaudal coverage and [id number] were restricted to the heart. Post-processing was performed on an independent computer workstation consisting of coronary calcium scoring. FINDINGS: Coronary calcium score: Left main: ??Agatston score: 0 Left anterior descending: ??Agatston score: 0 Left circumflex: ??Agatston score: 0 Right coronary: ??Agatston score: 0 TOTAL: ??Agatston score: 0 Atherosclerotic plaque burden, based on Agatston score: No detectable calcified atherosclerotic plaque. Percentile rank, for subjects of the same age, gender, and race/ethnicity who are free of clinical cardiovascular disease and treated diabetes: N/A Reference: Silver Mcbride Detrano R, et al. ??Distribution of coronary artery calcium by race, gender, and age: results from the Multi-Ethnic Study of Atherosclerosis (ARIAS). Circulation. 2006;113(1):30-37. Other cardiovascular structures: No significant findings. Other mediastinal structures: No significant findings Pulmonary parenchyma, airways, pleura: No significant findings. Upper abdomen: No significant findings Skeletal Structures: No significant findings. Procedure Note Gayatri Garay MD - 11/18/2023 EXAMINATION: CT HEART FOR CORONARY CALCIUM WO CONTRAST (PREPAID) CLINICAL HISTORY: hyperlipidemia COMPARISON: None. TECHNIQUE: 3.0 mm thick axial contiguous sections through the heart were obtained via ECG-gated axial mode acquisition without intravenouscontrast. Craniocaudal coverage and xymuc-yh-rbus were restricted to the heart. Post-processing was performed on an independent computer workstationconsisting of coronary calcium scoring. FINDINGS: Coronary calcium score: Left main: Agatston score: 0 Left anterior descending: Agatston score: 0 Left circumflex: Agatston score: 0 Right coronary: Agatston score: 0 TOTAL: Agatston score: 0 Atherosclerotic plaque burden, based on Agatston score: No detectablecalcified atherosclerotic plaque. Percentile rank, for subjects of the same age, gender, and race/ethnicitywho are free of clinical cardiovascular disease and treated diabetes: N/A Reference: Silver Mcbride Detrano R, et al. ??Distribution ofcoronary artery calcium by race, gender, and age: results from the Multi-EthnicStudy of Atherosclerosis (ARIAS). Circulation. 2006;113(1):30-37. Other cardiovascular structures: No significant findings. Other mediastinal structures: No significant findings Pulmonary parenchyma, airways, pleura: No significant findings. Upper abdomen: No significant findings Skeletal Structures: No significant findings. IMPRESSION 1. Coronary calcium score of 0, consistent with no detectable calcified atherosclerotic plaque burden. Thank you for letting us participate in the care of this patient. If youare a health care provider and have any questions regarding this report,please contact the number below. For patients who have questions please contactthe health field care coordinator that requested your imaging first. Electronically signed by: Gayatri Tanner MD, [facility] ([phone]), at 11/18/2023 5:08 PM Lana Matthews MD IMG CT ORDERABLES documented in this encounter Visit Diagnoses Diagnosis Hyperlipidemia, unspecified hyperlipidemia type documented in this encounter Care Teams Sales Service Supervisor Relationship Specialty Start Date End Date Mirian Solis MD [address] [place] [address] PCP - General 08/13/10 documented as of this encounter
--- OUTSIDE RECORDS SUMMARY | 2024-08-17 16:18 | XMS_ITS | Encounter Summary ---
Author Organization [facility] Address [address] [place] [address] Care Team Providers Care Emergency Service Restorer Name Role Phone Unavailable Primary Care Provider Unavailabl e Encounter Details Date Type Department Care Team (Late st Contact Info) Description 04/25/2003 Results Only [facility] - [facility] [address] [place] [address] Sylvester Parra MD [address] [place] [address] Social History Tobacco Use Types [...] Priority Date/Time Associated Diagnosis Comments CYTOPATHOLOGY Routine 04/25/2003 0:00 EDT documented in this encounter Results * CYTOPATHOLOGY (04/25/2003 0:00 EDT) Pathology Report: CYTOPATHOLOGY REPORT Reports generated via electronic interface contain original data; however they are lacking the format of the original report. Caution should be taken when reading/interpreti ng unformatted reports. Name: ? OSMIN GALLEGOS ? Accession #: ? [id number] : ? 1970 (Age: 32) ??F ?Collect Date: ? 04/25/2003 Location: ? [facility] ? Receive Date: ? 04/27/2003 Provider: ?SYLVESTER PARRA MD Copy to: ? Specimen/Source: ?ThinPrep Pap Test, Cervix/Endocervix Last Menstrual Period: ? 04/03/02 Other: ? HPVA - HPV testing requested if ASC-US on the current ThinPrep Pap test. ? SPECIMEN ADEQUACY ? Satisfactory for Evaluation - transformation zone component present GENERAL CATEGORIZATION ? Negative for Intraepithelial Lesion or Malignancy ? Document reviewed and electronically signed by: ? KIM Bhandari(ASCP) ? Report Date: ??05/02/2003 10:41 End of Report KATELYNN SONG 04/25/2003 04/27/2003 us Sylvester Parra MD PATHOLOGY ORDERABLES Final Resul t KATELYNN SONG [address] [place] [address] documented in this encounter Visit Diagnoses Not on filedocumented in this encounter
--- OUTSIDE RECORDS SUMMARY | 2024-08-17 16:18 | XMS_ITS | Encounter Summary ---
Author Organization [facility] Address [address] [place] [address] Care Team Providers Care Munitions Factory Worker Name Role Phone Lana Matthews MD Primary Care Provider [phone] Encounter Details Date Type Department Care Team (Latest Contact Info) Description 08/27/2021 Lab Requisition [facility] Pathology & Laboratory Medicine - [facility] [address] [place] [address] Lana Matthews MD [address] [place] [phone] Encounter for gynecological examination (general) (routine) without abnormal findings Social History Tobacco Use Types Packs/Day Years [...] Name Priority Date/Time Associated Diagnosis Comments PAP TEST Today 08/23/2021 1:45 EST Encounter for gynecological examination (general) (routine) without abnormal findings HPV DNA DETECTION WITH GENOTYPING, PCR Today 08/23/2021 1:45 EST Encounter for gynecological examination (general) (routine) without abnormal findings documented in this encounter Results * HUMAN PAPILLOMAVIRUS (HPV) DETECTION-HIGH RISK TYPES (08/23/2021 1:45 EST) HPV other High Risk types, PCR Negative Negative 09/05/2021 19:36 [facility] Comment:No E6 or E7 mRNA is detected from HPV types 16,18,31,33,35,39,45,51,52,56,58,59,66, and 68 by keyseating machine set up operator mediated amplification. Papanicolaou smear specimen (specimen) CERVIX UTERI STRUCTURE / Unknown 08/23/2021 1:45 EST 09/04/2021 15:13 EST us Lana Matthews MD MICROBIOLOGY - GENERAL ORDERABLE S Final Result [facility] [address] [place] [address] * PAP TEST (08/23/2021 1:45 EST) Specimens A. Cervix and/or Endocervix , ThinPrep Imaging System with Manual Evaluation 09/05/2021 19:36 [facility] Specimen Adequacy Satisfactory for Evaluation - transformation zone component present 09/05/2021 19:36 [facility] General Categorization Epithelial Cell Abnormality 09/05/2021 19:36 [facility] Descriptive Diagnosis Squamous Cell Abnormality - Atypical squamous cells, undetermined significance (ASC-US). 09/05/2021 19:36 [facility] Educational Comments [facility] recommends following ASCCP's 2012 Updated Consensus Guidelines for the Management of Abnormal Cervical Cancer Screening Tests and Cancer Precursors (JLGTD, 2013; 17(5):S1-S27). Consensus guidelines are available online at www.asccp.org. 09/05/2021 19:36 [facility] Attestation By the signature below, the attending physician certifies that they have personally conducted a gross and/or microscopic examination of the described specimens and rendered or confirmed the above diagnosis. 09/05/2021 19:36 [facility] at 1936 Clinical History See below 09/05/20 19:36 [facility] HPV The result for the Human Papillomavirus (HPV) Detection-High Risk Types is Negative. No E6 or E7 mRNA is detected from HPV types 16,18,31,33,35,3 9,45,51,52,56,58 ,59,66, and 68 by keyseating machine set up operator mediated amplification.Te sting was performed on specimen [id number] and was resulted on 09/05/2021 1934 EST by SHEY, LAB INSTRUMENT RESULTS IN 09/05/2021 19:36 EST [facility] Performing Lab [facility] 09/05/2021 19:36 EST [facility] Scanned Images 09/05/2021 19:36 EST [facility] Papanicolaou smear specimen (specimen) CERVIX UTERI STRUCTURE / Unknown 08/23/2021 1:45 EST 08/27/2021 14:08 EST us Lana Matthews MD PATHOLOGY ORDERABLES Final Resul t [facility] [address] [place] [address] documented in this encounter Visit Diagnoses Diagnosis Encounter for gynecological examination (general) (routine) without abnormal findings documented in this encounter Care Teams Munitions Factory Worker Relationship Specialty Start Date End Date Lana Matthews MD [address] [place] [id number] PCP - General 06/30/18 documented as of this encounter
== END 2024-08-17 16:17 | disposition home or self-care (01) ==
LOC: NCHCN 16:16
PROVIDERS: PCP Family Medicine; Visit Provider Family Medicine
DX: Z11.51 Encounter for screening for human papillomavirus (HPV) (principal); Z01.419 Encounter for gynecological examination (general) (routine) without abnormal findings
CPT/HCPCS: 88142; 87624

== ENCOUNTER 2024-08-27 14:15 | Outpatient (CLI) | payer OTHER, BC, SELFPAY ==
--- NOTE | 2024-08-27 | DI.RAD_ITS ---
Exam(s) XR FOOT RT COMPLETE EXAM: XR FOOT RT COMPLETE CLINICAL HISTORY: Pain in Right foot - ICD-10: M79.671. TECHNIQUE: 2D digital imaging was performed. Three views. COMPARISON: No exams were available for comparison FINDINGS: BONES: No acute fracture is present. No bony destructive lesion is seen. Small heel spurs. JOINTS: No dislocation present. Moderate degenerative changes are noted at the 1st MTP joint with pr ominent spurring dorsally.. SOFT TISSUE: Normal. IMPRESSION: No acute abnormality DATA REPOSITORY: RADIATION DOSE DELIVERED:
--- NOTE | 2024-08-27 17:04 | DI.VRAD_ITS ---
PROCEDURE INFORMATION: Exam: XR Right Foot Exam date and time: 08/27/2024 2:27 PM Age: 54 years old Clinical indication: Pain; Foot; Right TECHNIQUE: Imaging protocol: Radiologic exam of the right foot. Views: 3 or more views. COMPARISON: No relevant prior studies available. FINDINGS: Bones/joints: Mild degenerative changes of the 1st metatarsal phalangeal joint. No fracture or dislocation. Mild degenerative changes of the 1st DIP joint. Soft tissues: Soft tissue calcification along the dorsal aspect of the distal 1st metatarsal. IMPRESSION: Degenerative changes of the 1st D IP and PIP joint. Soft tissue calcification along the dorsal aspect of the distal 1st metatarsal. Dictated and Authenticated by: Shoshana Feng MD. Ordering:SIMIN Decker MD
== END 2024-08-27 14:35 ==
PROVIDERS: PCP Family Medicine; Visit Provider Physician Assistant Medical
DX: M79.671 Pain in right foot (principal)
CPT/HCPCS: 73630

== ENCOUNTER 2024-08-31 01:39 | Outpatient (CLI) | payer BC, SELFPAY ==
--- NOTE | 2024-08-31 | DI.MAMMO_ITS ---
Exam(s) MAMMO SCREENING EXAM: MAMMO SCREENING CLINICAL HISTORY: Screening, Z12.31. TECHNIQUE: Bilateral full field digital CC and MLO mammographic images were obtained with 3D tomosyn thesis and utilizing computer aided detection (CAD). COMPARISON: Prior mammograms were reviewed. FINDINGS: There are no CAD designations. No significant right breast findings. The left breast on the CC view there is a slightly lobulated nodular density measuring 7 by 5 mm loca an 7 cm in from the nipple on the CC view. Requires additional imaging There are no malignant-appearing microcalcification groups in this region or elsewhere in either [address]. There is no significant architectural distortion nor skin thickening-retraction. IMPRESSION: Dense bilateral fibroglandular tissue. No radiographic evidence of malignancy in the right breast. Possible left breast nodule measuring 7 x 5 mm. Spot compression CC view and breast ultrasound recom mended. BI-RADS Category 0 - Incomplete: Need additional imaging evaluation Breast Density - Category C - Heterogeneously dense Breast density Category C or D implies that the patient has dense breast tissue. Dense breast tissue can make it harder to find cancer on a mammogram. Dense breast tissue is also associated with an incr eased risk of breast cancer. This information about the result of the mammogram report was provided to the patient to raise their awareness. Use this report when you speak with the patient about their risks for breast cancer, which includes their family history. At that time, you may recommend additional screening tests (Ultrasoun d or MRI) as these tests may add significant information. A negative radiographic report should not delay biopsy if a dominant or clinically suspicious mass is present. Up to ten percent of cancers are not identified on mammography. A negative report may reinforce clinical impression. Adenosis and dense breasts may obscure an underlying neoplasm. False positive reports average 6 to 10%. Patient will receive a letter notifying them of these results.
== END 2024-08-31 01:59 ==
LOC: DI 01:39
PROVIDERS: PCP Family Medicine; Visit Provider Family Medicine
DX: Z12.31 Encounter for screening mammogram for malignant neoplasm of breast (principal); R92.333 Mammographic heterogeneous density, bilateral breasts
CPT/HCPCS: 77063; 77067

== ENCOUNTER 2024-09-20 01:26 | Outpatient (CLI) | payer BC, SELFPAY ==
--- NOTE | 2024-09-20 14:16 | DI.MAMMO_ITS ---
Exam(s) MG MAMMO SCREEN CALL BACK UNI US BREAST LT COMPLETE EXAM: MAMMO SCREEN CALL BACK UNI LEFT AND COMPLETE LEFT BREAST ULTRASOUND CLINICAL HISTORY: F/U ABNL MAMMO, R92.8,? LT BREAST NODULE,NODULAR DENSITY. TECHNIQUE: Unilateral LEFT BREAST spot mammographic images obtained with 3D tomosynthesisand [employer] computer aided detection (CAD). . Complete LEFT breast Ultrasound was also performed, including all 4 quadrants, the retroareolar regio n, and the ipsilateral axilla. COMPARISON: Prior mammograms were reviewed. This additional imaging was performed due to findings described on the recent screening mammogram of 08/31/2024. FINDINGS: DIAGNOSTIC MAMMOGRAM: Additional mammographic views performed todaydoes not dissipate this nodule COMPLETE LEFT BREAST ULTRASOUND: Ultrasound performed today reveals no evidence of solid or significant cystic lesions in all 4 quadra nts. This implies that the small nodule is most probably a benign intramammary lymph node. Scanning of the ipsilateral axilla reveals no significant adenopathy. IMPRESSION: 1. Benign findings as above. Appropriate follow-up is to keep this patient on a yearly mammogram schedule, with earlier imaging i f a self detected breast change is noted. The patient was informed of these findings and recommendations myself prior to leaving the department today. BI-RADS Category 2 - Benign Findings Breast Density - Category C - Heterogeneously dense Breast density Category C or D implies that the patient has dense breast tissue. Dense breast tissue can make it harder to find cancer on a mammogram. Dense breast tissue is also associated with an incr eased risk of breast cancer. This information about the result of the mammogram report was provided to the patient to raise their awareness. Use this report when you speak with the patient about their risks for breast cancer, which includes their family history. At that time, you may recommend additional screening tests (Ultrasoun d or MRI) as these tests may add significant information. A negative radiographic report should not delay biopsy if a dominant or clinically suspicious mass is present. Up to ten percent of cancers are not identified on mammography. A negative report may reinforce clinical impression. Adenosis and dense breasts may obscure an underlying neoplasm. False positive reports average 6 to 10%. Patient will receive a letter notifying them of these results.
== END 2024-09-20 01:46 ==
LOC: DI 01:26
PROVIDERS: PCP Family Medicine; Visit Provider Family Medicine
DX: R92.8 Other abnormal and inconclusive findings on diagnostic imaging of breast (principal); R92.333 Mammographic heterogeneous density, bilateral breasts; D24.2 Benign neoplasm of left breast
CPT/HCPCS: 76642; 77063; 77067